=== PATIENT | female | born 1985 | race American Indian/Alaskan Native ===

== ENCOUNTER 2017-07-13 10:14 | Emergency (ER) | payer OTHER ==
[2017-07-13 10:22] VITALS: BP 140/84; PULSE 84; TEMP 97.6; BMI 30.5
[2017-07-13] MEDS ORDERED: KETOROLAC TROMETHAMINE 60 MG/2 ML VIAL IM ONE (10:39)
--- NOTE | 2017-07-13 10:39 | PDOC ---
History of Present Illness - General Chief Complaint: Pain Stated Complaint: NECK PAIN Time Seen by Provider: 07/13/17 10:29 History Source: Patient Exam Limitations: No Limitations - History of Present Illness Initial Comments: 07/13/17 10:41 31-year-old female presents to the ED with complaints of right-sided neck pain for approximately 6 days which she states occurred suddenly when she was combing her hair and flipping her head sideways. Patient states initially had a sharp aching pain to the area and for the past week she has been applying ice receiving massages and taking Motrin with minimal to moderate effect. Patient denies headache, posterior neck pain, back pain, chest pain, rash, or previous injury to the affected area. Timing/Duration: other (6 days) Severity: mild Associated Symptoms: reports: denies symptoms Past History - Travel Traveled outside of the country in the last 30 days: No - Past Medical History Allergies/Adverse Reactions: Allergies Allergy/AdvReac Type Severity Reaction Status Date / Time No Known Allergies Allergy Verified 07/13/17 10:22 Home Medications: Ambulatory Orders No Home Medications 0 dose .ROUTE UTDICT 04/04/12 COPD: No - Suicide/Smoking/Psychosocial Hx Smoking Status: No Smoking History: Never smoked Number of Cigarettes Smoked Daily: 0 Patient Lives Alone: No Lives with/in: parents Review of Systems - Review of Systems Able to Perform ROS?: No Constitutional: No: Symptoms Reported HEENTM: No: Symptoms Reported Respiratory: No: Symptoms reported Cardiac (ROS): No: Symptoms Reported : No: Symptoms Reported Musculoskeletal: Yes: Neck Pain Integumentary: No: Symptoms Reported Neurological: No: Symptoms reported *Physical Exam - Vital Signs Last Vital Signs Temp Pulse Resp BP Pulse Ox 97.6 F 84 18 140/84 99 07/13/17 10:17 07/13/17 10:17 07/13/17 10:17 07/13/17 10:17 07/13/17 10:17 - Physical Exam General Appearance: Yes: Nourished, Appropriately Dressed. No: Apparent Distress HEENT: positive: Pharynx Normal Neck: positive: Supple, Other (tenderness over right trapezius muscle. Patient with chin tilt to the right. ). negative: Tender midline (no vertebral tenderness) Respiratory/Chest: positive: Lungs Clear, Normal Breath Sounds. negative: Respiratory Distress, Accessory Muscle Use Cardiovascular: positive: Regular Rhythm, Regular Rate. negative: Murmur Extremity: positive: Normal Range of Motion (right arm) Integumentary: positive: Normal Color, Warm, Moist. negative: Rash Neurologic: positive: Motor Strength 5/5 (ambulatory) Medical Decision Making - Medical Decision Making 07/13/17 10:45 Patient with sudden right neck pain and based on clinical exam has been diagnosed with acquired torticollis. Patient drove herself here and will not receive Valium here in the ER but was given Toradol IM and will be discharged home with recommendations to take Motrin 600 mg every 8 hours along with Valium. Patient also states has a neck pillow at home which she can use. *DC/Admit/Observation/Transfer Diagnosis at time of Disposition: Torticollis, acquired - Discharge Dispostion Disposition: HOME Condition at time of disposition: Good - Referrals - Patient Instructions Printed Discharge Instructions: DI for Torticollis Additional Instructions: Please take Valium as prescribed for the next 5 days. [place] also take 600 mg of Motrin every 8 hours for adequate treatment for inflammation discomfort. Use neck pillow as discussed here in the ER. - Post Discharge Activity
[2017-07-13] MEDS ORDERED: KETOROLAC TROMETHAMINE 60 MG/2 ML VIAL ONE (10:41)
== END 2017-07-13 11:00 | disposition home or self-care (01) ==
LOC: JERFT 10:14
PROC: 3E0233Z Introduction of Anti-inflammatory into Muscle, Percutaneous Approach (ICD-10-PCS; principal; 2017-07-13)
DX: M43.6 Torticollis (principal)
CPT/HCPCS: 99281-25

== ENCOUNTER 2020-10-06 04:46 | Emergency (ER) | payer OTHER ==
[2020-10-06 05:01] VITALS: BP 131/82; PULSE 73; TEMP 97.5; BMI 30.5
[2020-10-06] MEDS ORDERED: ACETAMINOPHEN 500 MG TABLET (FP) PO ONE (05:44)
[2020-10-06 05:49] LABS: PH,URINE 5.5 (5.0-8.0); URINE APPEARANCE CLOUDY; URINE BILIRUBIN NEGATIVE (NEGATIVE); URINE COLOR YELLOW; URINE GLUCOSE (UA) NEGATIVE (NEGATIVE); URINE KETONE NEGATIVE (NEGATIVE); URINE LEUK ESTERASE NEGATIVE (NEGATIVE); URINE NITRITE NEGATIVE (NEGATIVE); URINE PROTEIN NEGATIVE (NEGATIVE); URINE UROBILINOGEN 0.2 mg/dL (0.2-1.0)
[2020-10-06 06:08] LABS: HCG,QUALITATIVE URINE NEGATIVE
[2020-10-06] MEDS ORDERED: ACETAMINOPHEN 325 MG TABLET (FP) ONE (06:10)
[2020-10-06] MEDS ORDERED: IBUPROFEN 600 MG TABLET (FP) PO ONE ×2 (06:10)
== END 2020-10-06 07:40 | disposition home or self-care (01) ==
LOC: JER 04:46
DX: R07.81 Pleurodynia (principal)
CPT/HCPCS: 71046-TC-FY; 81003; 84703; 87086; 99284-25

== ENCOUNTER 2023-06-25 13:37 | Emergency (ER) | payer SELFPAY ==
[2023-06-25 14:00] VITALS: BP 118/69; PULSE 103; RESP 20; TEMP 98.1; BMI 32.1
[2023-06-25] MEDS ORDERED: ONDANSETRON *ODT* 4 MG TABLET ONE ×2 (14:12→14:22)
[2023-06-25] MEDS: ONDANSETRON *ODT* 4 MG TABLET SL ONE (14:14)
[2023-06-25] MEDS ORDERED: ACETAMINOPHEN 325 MG TABLET (FP) ONE (14:53)
[2023-06-25] MEDS: ACETAMINOPHEN 325 MG TABLET (FP) PO ONE (15:03)
[2023-06-25 15:39] LABS: EPI CELLS >36 /uL (0-25.1); HYALINE CASTS 2 /uL (0-3.1); URINE APPEARANCE CLEAR; URINE BACTERIA 139 /uL (0-1359); URINE BILIRUBIN NEGATIVE (NEGATIVE); URINE COLOR DK YELLOW; URINE GLUCOSE (UA) NEGATIVE (NEGATIVE); URINE KETONE 1+ (NEGATIVE); URINE LEUK ESTERASE TRACE (NEGATIVE); URINE NITRITE NEGATIVE (NEGATIVE); URINE PROTEIN TRACE (NEGATIVE); URINE WBC 37 /uL (0-25.8)
[2023-06-25 15:47] LABS: URINE RBC 19.2 /uL (0-23.9)
== END 2023-06-25 16:55 | disposition home or self-care (01) ==
LOC: JER 13:37
DX: R11.2 Nausea with vomiting, unspecified (principal); R53.81 Other malaise; K52.9 Noninfective gastroenteritis and colitis, unspecified; Z20.822 Contact with and (suspected) exposure to COVID-19
CPT/HCPCS: 0241U-QW; 81003; 84703; 87086; 93005; 93010; 99284-25; Q0162